=== PATIENT | male | born 2000 | race Caucasian/White ===

== ENCOUNTER 2021-12-30 13:18 | Outpatient (CLI) | payer SELFPAY | END 2021-12-30 13:19 | disposition home or self-care (01) | LOC: LABBT 13:18 | PROVIDERS: ATTEND Orthopaedic Surgery | DX: S52.501A Unspecified fracture of the lower end of right radius, initial encounter for closed fracture (principal); Z20.822 Contact with and (suspected) exposure to COVID-19 | CPT/HCPCS: 87811 ==

== ENCOUNTER 2022-01-01 10:18 | Day surgery (SDC) | payer OTHER ==
[2021-12-31 10:10] VITALS: BMI 21.2
[2022-01-01] MEDS ORDERED: Fentanyl 100 MCG/2 ML VIAL ONE (11:11)
[2022-01-01] MEDS ORDERED: Midazolam HCl 2 mg/2 ml Vial ONE (11:11)
[2022-01-01] MEDS ORDERED: fentaNYL Citrate/PF 100 MCG/2 ML SYRINGE ONE (12:38)
[2022-01-01] MEDS ORDERED: Propofol 500 MG/50 ML VIAL ONE (12:38)
[2022-01-01] MEDS ORDERED: CEFAZOLIN 2 GM VIAL ONE (13:00)
[2022-01-01] MEDS ORDERED: Sodium Chloride 0.9% 100 ML ONE (13:00)
[2022-01-01] MEDS ORDERED: Lidocaine 1% PF 5 ML VIAL ONE (13:14)
[2022-01-01] MEDS ORDERED: PROPOFOL 200 MG/20 ML VIAL ONE (13:14)
[2022-01-01] MEDS ORDERED: Ondansetron PF 4 MG/2 ML Vial ONE (13:14)
[2022-01-01] MEDS ORDERED: Bupivacaine HCl 0.5%/Epinephrine 1:200,000/PF 30 ml Vial ONE (13:14)
[2022-01-01] MEDS ORDERED: Dexamethasone 20 MG/5 ML VIAL ONE (13:14)
== END 2022-01-01 16:18 | disposition home or self-care (01) ==
LOC: SDC 10:18
PROVIDERS: ATTEND Orthopaedic Surgery
PROC: 0PSH04Z Reposition Right Radius with Internal Fixation Device, Open Approach (ICD-10-PCS; principal; 2022-01-01)
DX: S52.531A Colles' fracture of right radius, initial encounter for closed fracture (principal); S52.611A Displaced fracture of right ulna styloid process, initial encounter for closed fracture; V80.010A Animal-rider injured by fall from or being thrown from horse in noncollision accident, initial encounter
CPT/HCPCS: 76000; C1713; J0690; J1100; J2250; J2405; J2704; J3010; J3490